=== PATIENT | female | born 1950 | race Caucasian/White ===

== ENCOUNTER 2025-09-17 09:05 | Emergency (ER) | payer MEDICARE, BC ==
[~2025-09-17] VITALS: Ht 170.2 cm; Wt 95.3 kg
[2025-09-17 09:07] VITALS: BP 142/76
[2025-09-17] MEDS ORDERED: IBUPROFEN 400 MG TABLET ONE (10:22)
[2025-09-17] MEDS ORDERED: ACETAMINOPHEN 500 MG TABLET ONE (10:22)
[2025-09-17] MEDS: ACETAMINOPHEN 500 MG TABLET PO ONE (10:29)
[2025-09-17] MEDS: IBUPROFEN 400 MG TABLET PO ONE (10:29)
[2025-09-17 10:42] VITALS: BP 142/76; TEMP 97.8; O2SAT 96
== END 2025-09-17 10:43 | disposition home or self-care (01) ==
LOC: ER 09:05
DX: S43.102A Unspecified dislocation of left acromioclavicular joint, initial encounter (principal); S40.012A Contusion of left shoulder, initial encounter; J98.11 Atelectasis; Z88.5 Allergy status to narcotic agent; Z91.018 Allergy to other foods; V89.9XXA Person injured in unspecified vehicle accident, initial encounter; Y93.89 Activity, other specified; Y92.415 Exit ramp or entrance ramp of street or highway as the place of occurrence of the external cause; Y99.9 Unspecified external cause status
CPT/HCPCS: 71101; 73020; A4606; A4663; A9150